=== PATIENT | male | born 1990 | race Caucasian/White ===

== ENCOUNTER 2019-03-23 01:51 | Emergency (ER) | payer MEDICAID, SELFPAY ==
[2019-02-05 16:43] VITALS: BMI 20.9
[2019-03-23 01:52] VITALS: BP 119/73; PULSE 77; RESP 18; TEMP 36.4; O2SAT 99; BMI 19.3
--- NOTE | 2019-03-23 02:00 | ED.VIS.GEN ---
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 He noticed some numbness and tingling in his left second and third distal tips of his fingers. He feels normal when he touches them. There is no pain. He has no hand pain or wrist pain. Is never had carpal tunnel syndrome. Denies any other symptoms except for he feels like his stomach in knots which he thinks is secondary to feeling anxious about this tingling. Current severity is mild. Worsened by nothing. Relieved by nothing. Past Medical History - Allergies and Home Meds Allergies/Adverse Reactions: Allergies bee venom protein (honey bee) Allergy (Verified 03/23/19 01:54) Anaphylaxis Primary Care Physician: Care Physician,No Primary [Primary Care Provider] - Prior records reviewed: Yes Past Medical History: None Surgical History: noncontributory Smoking Status: Current every day smoker Alcohol: None Drugs: None Review of Systems General: Denies: Chills, Fever, Sweats Eyes: Denies: Visual changes - bilaterally, Diplopia ENT: Denies: Rhinorrhea, Sore throat Cardiovascular: Denies: Chest pain, Palpitations Respiratory: Denies: Dyspnea, Cough, Dyspnea on exertion Gastrointestinal: Denies: Abdominal pain, Nausea, Vomiting, Diarrhea, Melena, Hematochezia Genitourinary: Denies: Dysuria, Hematuria, Frequency Musculoskeletal: Denies: Back pain, Extremity Pain Skin: Denies: Rash, Wounds Neurological: Reports: Numbness. Denies: Headache, Weakness, Parasthesia Physical Exam Vital Signs/Narrative: Vital Signs Temp Pulse Resp BP Pulse Ox 03/23/19 01:52 97.5 F L 77 18 119/73 99 General: Well nourished, Well developed, No Acute Distress Head: Normocephalic, Atraumatic Eyes: Perrl, EOMI ENT: Moist mucous membranes, No rhinorrhea Neck: Supple, Nontender Cardiovascular: Regular rate, Regular rhythm, No murmurs Respiratory: No distress, CTA bilaterally, Chest nontender Abdomen: Soft, Nontender, Nondistended, Normal bowel sounds Back: Nontender, Normal Inspection Extremities: Nontender, No edema Skin: Normal color, No rash Neurological: Alert, Oriented x3, Cranial nerves II-XII grossly intact, Normal Strength, Normal Sensation Psychological: Normal affect, Normal Mood Diagnostic/Tx/Re-eval - Medical Decision Making The patient likely has numbness and tingling from the median nerve neuropathy perhaps early carpal tunnel. Given a cock-up wrist splint and ibuprofen. Given a prescription for meloxicam. I do not think there is a central cause. I do not feel any lab work or imaging. He will follow-up as an outpatient ED Disposition - Plan for ED Patient: Disposition: Psychiatric Hospital or Unit Diagnosis: Paresthesia of finger Instructions: Carpal Tunnel Prescriptions: Meloxicam 15 mg PO DAILY #14 tab Prescription Printed Referrals: Gene Church MD [STAFF PHYSICIAN] -
[2019-03-23] MEDS: Ibuprofen 600 MG Tablet PO (02:13)
== END 2019-03-23 02:19 | disposition home or self-care (01) ==
LOC: ED 02:14
PROVIDERS: Emergency Provider Emergency Medicine
DX: R20.2 Paresthesia of skin (principal); R20.0 Anesthesia of skin; F17.200 Nicotine dependence, unspecified, uncomplicated
CPT/HCPCS: 99283

== ENCOUNTER 2019-03-25 21:27 | Emergency (ER) | payer MEDICAID, SELFPAY ==
[2019-03-25 21:28] VITALS: BP 126/72; PULSE 92; RESP 15; TEMP 36.9; O2SAT 97; BMI 21.7
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
[2019-03-25 22:09] VITALS: RESP 16
== END 2019-03-25 22:10 | disposition home or self-care (01) ==
LOC: ED 21:59
PROVIDERS: Emergency Provider Emergency Medicine
DX: M54.2 Cervicalgia (principal); H92.02 Otalgia, left ear; R51 Headache; Y04.0XXA Assault by unarmed brawl or fight, initial encounter
CPT/HCPCS: 99283

== ENCOUNTER 2019-03-30 04:23 | Emergency (ER) | payer MEDICAID, SELFPAY ==
[2019-03-27 11:29] VITALS: BMI 21.7
[2019-03-30 04:25] VITALS: BP 131/81; PULSE 85; RESP 18; TEMP 36.6; O2SAT 100; BMI 19.8
--- NOTE | 2019-03-30 04:35 | EKG12_ITS ---
Test Reason : PALPITATIONS Blood Pressure : / mmHG Vent. Rate : 058 BPM Atrial Rate : 058 BPM P-R Int : 142 ms QRS Dur : 096 ms QT Int : 402 ms P-R-T Axes : 067 066 072 degrees QTc Int : 394 ms Sinus bradycardia with marked sinus arrhythmia Otherwise normal ECG Confirmed by NIKO DOTSON ([id number]), editor house organ AARON HUDSON ([id number]) on 04/02/2019 1:14:44 PM Referred By: ROOPA Confirmed By:NIKO DOTSON
--- NOTE | 2019-03-30 04:36 | ED.VIS.GEN ---
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 He does not do any drugs. He occasionally drinks caffeine, but about half a cup of coffee before work, denies taking anything else this morning. He denies any near syncopal symptoms or chest pains. No dyspnea. He does not feel like anything is skipping, he feels like his heart rate is elevated. Past Medical History - Allergies and Home Meds Allergies/Adverse Reactions: Allergies bee venom protein (honey bee) Allergy (Verified 03/30/19 04:24) Anaphylaxis Primary Care Physician: Care Physician,No Primary [Primary Care Provider] - Past Medical History: None Surgical History: noncontributory Smoking Status: Current every day smoker Drugs: None Review of Systems General: Reports: Malaise. Denies: Chills, Fever, Sweats Eyes: Denies: Visual changes - bilaterally, Diplopia ENT: Denies: Rhinorrhea, Sore throat Cardiovascular: Reports: Palpitations, Heart racing. Denies: Chest pain Respiratory: Denies: Dyspnea, Cough, Dyspnea on exertion Gastrointestinal: Reports: Nausea. Denies: Abdominal pain, Vomiting, Diarrhea, Melena, Hematochezia Genitourinary: Denies: Dysuria, Hematuria, Frequency Musculoskeletal: Denies: Back pain, Extremity Pain Skin: Denies: Rash, Wounds Neurological: Denies: Headache, Weakness, Numbness Physical Exam Vital Signs/Narrative: Vital Signs Temp Pulse Resp BP Pulse Ox 03/30/19 04:25 97.9 F 85 18 131/81 H 100 Inital Vital Signs reviewed: Yes General: Well nourished, Well developed, No Acute Distress Head: Normocephalic, Atraumatic Eyes: Perrl, EOMI ENT: Moist mucous membranes, No rhinorrhea Neck: Supple, Nontender Cardiovascular: Regular rate, Regular rhythm - with occasional irregularity, No murmurs, Normal S1, Normal S2 Respiratory: No distress, CTA bilaterally, Chest nontender Extremities: Nontender, No edema Skin: Normal color, No rash, No Trauma Neurological: Alert, Oriented x3, Cranial nerves II-XII grossly intact, Normal Strength, Normal Sensation, Normal Gait, - - fine tremor Psychological: Normal affect, Normal Mood Diagnostic/Tx/Re-eval - Rhythm Strip Rhythm Strip: Sinus Rhythm Rate: 90 Ectopy: PAC(s) - possibly - EKG Initial EKG Interpretation: No Acute Injury Pattern, Sinus Arrythmia Prior: No Prior - Medical Decision Making I looked up the ingredients of the pill that the patient took, contains caffeine to 50 mg, and some herbal supplements. He likely is having side effects from the caffeine. He is not having a dysrhythmia. He will be given an oral dose of Ativan to help with his symptoms and discharged home to rest. ED Disposition - Plan for ED Patient: Disposition: Home or Assisted Living Diagnosis: Caffeine adverse reaction Instructions: Caffeine Oral tablet Referrals: Regina Desouza [NON-STAFF] - As Needed
[2019-03-30 05:06] VITALS: BP 123/84; PULSE 63; RESP 16; O2SAT 98
[2019-03-30] MEDS: LORazepam 1 MG Tablet PO (05:06)
== END 2019-03-30 05:09 | disposition home or self-care (01) ==
LOC: ED 04:57
PROVIDERS: Emergency Provider Emergency Medicine
DX: R00.0 Tachycardia, unspecified (principal); R11.0 Nausea; T43.615A Adverse effect of caffeine, initial encounter; Y92.9 Unspecified place or not applicable; F17.200 Nicotine dependence, unspecified, uncomplicated
CPT/HCPCS: 93005; 99284

== ENCOUNTER → 2019-09-12 14:34 | Outpatient (CLI) | payer MEDICAID, SELFPAY ==
[2019-04-12 11:35] VITALS: BMI 19.8
[2019-09-12 15:31] LABS: Hematocrit 43.5 % (40-54); Mean Corp Hgb Conc 34.5 g/dL (32-36); Mean Corpuscular Hgb 31.3 pg (27.0-32.0); Mean Corpuscular Volume 90.6 fL (80-94); Mean Platelet Vol. 10.1 fl (6.2-12.0); Platelet Count 161 K/mm3 (150-450); RBC Distribution Width CV 12.2 % (11.6-14.6); RBC Distribution Width SD 40.4 fl (35.1-43.9); White Blood Count 7.2 K/mm3 (4.4-11.0)
[2019-09-12 16:01] LABS: Anion Gap 5 (5-15); BUN 17 mg/dL (7-18); BUN/Creat Ratio 17.6 RATIO (10-20); Calcium,Total 9.1 mg/dL (8.5-10.1); Chloride 107 mmol/L (98-107); Creatinine, Serum 0.97 mg/dL (0.70-1.30); EST Glomerular Filtration Rate 99 mL/min (>60); Est Glom Filt Rate - Afr Amer 120 mL/min (>60); Glucose 116 mg/dL (74-106); Potassium 3.8 mmol/L (3.5-5.1); Sodium Level 139 mmol/L (136-145)
== END ==
PROVIDERS: PCP Family Medicine; Referring Provider Family Medicine
DX: N48.1 Balanitis (principal)
CPT/HCPCS: 36415; 80048; 85027

== ENCOUNTER 2019-09-18 17:21 | Emergency (ER) | payer MEDICAID, SELFPAY ==
[2019-04-12 11:35] VITALS: BMI 19.8
[2019-09-18 17:22] VITALS: BP 114/76; PULSE 98; RESP 16; TEMP 37.7; O2SAT 99; BMI 18.8
[2019-09-18] MEDS: Ondansetron ODT 4 MG Tablet PO (18:24)
[2019-09-18] MEDS: Ibuprofen 200 MG Tablet 400 MG PO (18:24)
[2019-09-18] MEDS: Acetaminophen 500 MG Tablet 1000 MG PO (18:24)
--- NOTE | 2019-09-18 18:28 | RAD_ITS ---
STUDY: X-RAY CHEST REASON FOR EXAM: Male, 29 years old. Cough with fever. TECHNIQUE: Frontal and lateral views of the chest. COMPARISON: None. FINDINGS: Hyperexpansion. Healed granulomatous calcification. There is no demonstrated pleural abnormality. Normal size heart. Normal mediastinum and yane. Normal visualized pulmonary arteries. Normal visualized aortic arch and descending thoracic aorta. Normal visualized thoracic spine. Normal visualized ribs, clavicles, and shoulders. There is no demonstrated abnormality of the visualized soft tissue structures of the upper abdomen. RAD/Chest PA and Lateral IMPRESSION: Hyperexpansion with no acute finding. Electronically Signed: Darrell Juárez MD at 18:45 EST , Service support ,
[2019-09-18 18:38] VITALS: BP 114/76; PULSE 98; RESP 16; TEMP 37.7; O2SAT 98
--- NOTE | 2019-09-18 19:02 | ED.VISSUMM ---
- ER Visit Summary Date of Service: 09/18/19 Chief Complaint: Cough History of Present Illness: The patient is a [address] Baldwin. Patient reports he has a cough that began 3 days ago. Its been productive of green sputum without blood. He had a fever to 102 degrees. He has a sore throat at 6 out of 10 in severity. Complains of diffuse myalgias. Complains of a headache is 4-10 in severity. He did not get a flu shot this year. Physical Examination: Vitals: Stable. Afebrile. General: Well-nourished and well-developed. Head: Normocephalic atraumatic. HEENT: Pharyngeal erythema with tonsillar enlargement bilaterally. No exudate. No evidence of peritonsillar abscess. Neck: Supple, no lymphadenopathy. No JVD. Nontender. Cardiovascular: Regular rate and rhythm. No murmurs. Respiratory: No respiratory distress. Clear to auscultation bilaterally. Abdominal: Soft, nontender, nondistended, normal bowel sounds. No guarding, rebound, or peritoneal signs. Back: Nontender. Extremities: Nontender, no edema. Skin: Normal color, no rash. Neurologic: Alert and oriented ?3. Cranial nerves II through XII are intact. Normal strength and sensation. Psych: Normal affect. Test Results: Chest x-ray is normal. Rapid strep is negative. Emergency Department Course and Treatment: Clinically the patient has influenza. I did not test him. He was given Tylenol, ibuprofen, and Zofran. He is resting more comfortably. Treatment Plan: Patient was instructed on symptomatic care. He will be discharged with Zofran. Instructed to follow-up Dr. Baldwin in 1 week if not improving. Return to the emergency department for any worsening symptoms. Disposition: To home in improved and stable condition. Impression: 1 1. URI. This note was generated with [employer] dictation software. It may contain incorrect words, spelling, and punctuation that were not noted in review of the chart prior to signing ED Disposition - Plan for ED Patient: Disposition: Home or Assisted Living Instructions: INFLUENZA (Adult) Prescriptions: Ondansetron [Zofran Odt] 4 mg PO Q8H PRN PRN #10 tab PRN Reason: Nausea Prescription Printed Referrals: Jolliff,Swetha S, MD [Primary Care Provider] - 1 Week if not improving
[2019-09-18 19:25] VITALS: PULSE 91; RESP 18; O2SAT 98
--- NOTE | 2019-09-18 19:26 | ED.RN ---
THIS NURSE REVIEWED D/C INSTRUCTIONS WITH PT. PT VERBALIZED UNDERSTANDING OF INSTRUCTIONS. PT DENIES FURTHER NEEDS OR QUESTIONS AT THIS TIME. PT AMBULATES FROM ROOM ON OWN WITHOUT ASSISTANCE FROM STAFF
== END 2019-09-18 19:26 | disposition home or self-care (01) ==
LOC: ED 18:24
PROVIDERS: Emergency Provider Emergency Medicine; PCP Family Medicine
DX: J06.9 Acute upper respiratory infection, unspecified (principal); Z72.0 Tobacco use
CPT/HCPCS: 71046; 87880; 99283

== ENCOUNTER 2019-09-19 06:34 | Emergency (ER) | payer MEDICAID, SELFPAY ==
[2019-09-18 17:22] VITALS: BMI 18.8
[2019-09-19 06:35] VITALS: BP 117/79; PULSE 84; RESP 18; TEMP 37.7; O2SAT 96; BMI 20.5
--- NOTE | 2019-09-19 06:42 | ED.VIS.GEN ---
History of Present Illness Chief Complaint: Fever Informant: Patient Onset: Days Narrative: Patient was seen in the emergency room last night for several day history of fever, cough, congestion, body aches. Rapid strep was negative. It was determined patient most likely had influenza but was outside the treatment window. He was given a prescription for Zofran at home. Patient states he felt pretty good when he left here last night. He went straight home and went to bed. He woke up at 615 this morning with a temperature of 102.6. He did not take anything for his fever. He has not yet filled his prescription from last night. He came back to the emergency room because he had spiked another fever. He denies any new symptoms. - Past Medical History (1) Influenza Status: Acute Past Medical History - Allergies and Home Meds Allergies/Adverse Reactions: Allergies bee venom protein (honey bee) Allergy (Verified 09/18/19 17:22) Anaphylaxis Primary Care Physician: Swetha Baldwin MD [Primary Care Provider] - Surgical History: noncontributory Smoking Status: Current every day smoker Review of Systems General: Reports: Fever Eyes: Denies: Visual changes - bilaterally ENT: Reports: Sore throat Cardiovascular: Denies: Chest pain Respiratory: Reports: Cough Gastrointestinal: Reports: Nausea. Denies: Vomiting Musculoskeletal: Reports: Myalgias. Denies: Swelling, Extremity Pain Skin: Denies: Rash Neurological: Denies: Weakness, Parasthesia Allergy: Denies: Uticaria Physical Exam Vital Signs/Narrative: Vital Signs Temp Pulse Resp BP Pulse Ox 09/19/19 06:35 99.9 F H 84 18 117/79 96 Inital Vital Signs reviewed: Yes General: Well nourished, Well developed Head: Normocephalic ENT: Moist mucous membranes, - - Posterior pharyngeal drainage. Uvula midline. Neck: Supple Cardiovascular: Regular rate, Regular rhythm Respiratory: No distress, CTA bilaterally Abdomen: Soft, Nontender, Hypoactive bowel sounds Back: Nontender Extremities: Nontender Skin: Normal color, No rash Neurological: Alert, Oriented x3 Psychological: Normal affect Diagnostic/Tx/Re-eval - Medical Decision Making Patient just had an extensive work-up for this illness last evening. He is given Tylenol, ibuprofen, and Zofran. He is encouraged to grape picker a bottle of Tylenol when he goes to the pharmacy to fill his Zofran prescription that was given last night. ED Disposition - Plan for ED Patient: Disposition: Home or Assisted Living Diagnosis: Influenza Instructions: INFLUENZA (Adult) Referrals: Swetha Baldwin MD [Primary Care Provider] -
[2019-09-19] MEDS: Ondansetron ODT 4 MG Tablet PO (06:48)
[2019-09-19] MEDS: Ibuprofen 200 MG Tablet 400 MG PO (06:48)
[2019-09-19] MEDS: Acetaminophen 500 MG Tablet 1000 MG PO (06:48)
== END 2019-09-19 06:56 | disposition home or self-care (01) ==
LOC: ED 06:52
PROVIDERS: Emergency Provider Emergency Medicine; PCP Family Medicine
DX: J11.1 Influenza due to unidentified influenza virus with other respiratory manifestations (principal)
CPT/HCPCS: 99283

== ENCOUNTER 2019-10-14 21:06 | Emergency (ER) | payer MEDICAID, SELFPAY ==
[2019-10-14 21:07] VITALS: BP 106/75; PULSE 81; RESP 16; TEMP 36.9; O2SAT 98; BMI 20.8
--- NOTE | 2019-10-14 22:20 | ED.VIS.GEN ---
History of Present Illness Chief Complaint: Wound Detail of Chief Complaint: Torn foreskin Informant: Patient Onset: Today Current Severity: Mild Maximum Severity: Mild Narrative: Patient presents with tear to his foreskin that occurred during intercourse shortly before arrival. Patient has not tried to urinate. Past Medical History - Allergies and Home Meds Allergies/Adverse Reactions: Allergies bee venom protein (honey bee) Allergy (Verified 10/14/19 21:10) Anaphylaxis Primary Care Physician: Swetha Baldwin MD [Primary Care Provider] - Yobani Collier MD [STAFF PHYSICIAN] - Past Medical History: None Surgical History: noncontributory Lives: With Family Smoking Status: Current every day smoker Review of Systems General: Denies: Chills, Fever Cardiovascular: Denies: Chest pain Respiratory: Denies: Dyspnea Gastrointestinal: Denies: Abdominal pain Genitourinary: Denies: Dysuria Musculoskeletal: Denies: Extremity Pain Skin: Reports: Wounds Neurological: Denies: Headache Physical Exam Vital Signs/Narrative: Vital Signs Temp Pulse Resp BP Pulse Ox 10/14/19 21:07 98.4 F 81 16 106/75 98 Inital Vital Signs reviewed: Yes General: Well nourished, Well developed Head: Normocephalic ENT: Moist mucous membranes Neck: Supple Cardiovascular: Regular rate, Regular rhythm Respiratory: No distress, CTA bilaterally Abdomen: Soft, Nontender : - - Patient is a superficial tear along the frenulum of the foreskin. No lesions are noted. Minimal bleeding. Neurological: Alert, Oriented x3 Psychological: Normal affect Diagnostic/Tx/Re-eval - Medical Decision Making Wound is cleansed. A small piece of Surgifoam and gauze are tucked next to the wound in the patient's underwear. I advised the patient that should heal spontaneously. He can use antibiotic ointment to the area to prevent infection. He was given return instructions if any sign of infection. Patient was advised to follow-up with Dr. Collier for any difficulties. I was advised by nursing staff prior to the patient leaving that he was actually planning on having a circumcision and is following with a urologist in [place]. He can follow-up with them as needed. ED Disposition - Plan for ED Patient: Disposition: Home or Assisted Living Diagnosis: Soft tissue injury Instructions: Wound Care Referrals: Swetha Baldwin MD [Primary Care Provider] - Yobani Collier MD [STAFF PHYSICIAN] - Additional Instructions: You can follow-up with Dr Collier or your urologist in [place]
[2019-10-14 22:35] VITALS: RESP 16
== END 2019-10-14 22:36 | disposition home or self-care (01) ==
PROVIDERS: Emergency Provider Emergency Medicine; PCP Family Medicine
DX: S30.93XA Unspecified superficial injury of penis, initial encounter (principal); X58.XXXA Exposure to other specified factors, initial encounter; Y93.9 Activity, unspecified; Y92.9 Unspecified place or not applicable; Y99.9 Unspecified external cause status; F17.200 Nicotine dependence, unspecified, uncomplicated
CPT/HCPCS: 99282

== ENCOUNTER 2020-02-03 10:56 | Emergency (ER) | payer MEDICAID, SELFPAY ==
[2020-02-03 10:57] VITALS: BP 132/81; PULSE 101; RESP 16; TEMP 36.1; BMI 21.9
[2020-02-03] MEDS: Tetracaine 0.5% Ophthalmic Bottle 1 DRP LEFT EYE (11:24)
[2020-02-03] MEDS: Fluorescein 1 MG STRIP 1 STRIP LEFT EYE (11:24)
--- NOTE | 2020-02-03 11:29 | ED.VIS.GEN ---
History of Present Illness Chief Complaint: Eye Problem Informant: Patient Onset: Yesterday Current Severity: Mild Maximum Severity: Mild Narrative: Patient complains of having rust in his eye as he was grinding he was wearing protective eyeglasses but felt as if some rocks got in his eye yesterday it persisted and he came in for evaluation. He has normal visual acuity no symptoms in the right eye only left, no other complaints no coronavirus exposures he has had this happen before and he has been seen at [facility] Past Medical History - Allergies and Home Meds Allergies/Adverse Reactions: Allergies bee venom protein (honey bee) Allergy (Verified 02/03/20 10:58) Anaphylaxis Primary Care Physician: Swetha Baldwin MD [Primary Care Provider] - Past Medical History: None Surgical History: noncontributory Smoking Status: Current every day smoker Review of Systems General: Denies: Chills, Fever, Sweats Eyes: Reports: Diplopia, -. Denies: Visual changes - bilaterally ENT: Denies: Rhinorrhea, Sore throat Cardiovascular: Denies: Chest pain, Palpitations Respiratory: Denies: Dyspnea, Cough, Dyspnea on exertion Gastrointestinal: Denies: Abdominal pain, Nausea, Vomiting, Diarrhea, Melena, Hematochezia Genitourinary: Denies: Dysuria, Hematuria, Frequency Musculoskeletal: Denies: Back pain, Extremity Pain Skin: Denies: Rash, Wounds Neurological: Denies: Headache, Weakness, Numbness Physical Exam Vital Signs/Narrative: Vital Signs Temp Pulse Resp BP 02/03/20 10:57 97.0 F L 101 H 16 132/81 H General: Well nourished, Well developed, No Acute Distress Head: Normocephalic, Atraumatic Eyes: Perrl, EOMI, - - The eyes are generally unremarkable visual acuity is intact to the left eye he is able to read the small print on the 4 x 4 card, left pupil reacts well anterior chamber intact conjunctivae appears normal, fluorescein tetracaine slit-lamp I see no obvious uptake and no obvious foreign body he has no symptoms in the right eye ENT: Moist mucous membranes, No rhinorrhea Neck: Supple, Nontender Cardiovascular: Regular rate, Regular rhythm, No murmurs Respiratory: No distress, CTA bilaterally, Chest nontender Abdomen: Soft, Nontender, Nondistended, Normal bowel sounds Back: Nontender, Normal Inspection Extremities: Nontender, No edema Skin: Normal color, No rash Neurological: Alert, Oriented x3, Cranial nerves II-XII grossly intact, Normal Strength, Normal Sensation Psychological: Normal affect, Normal Mood Diagnostic/Tx/Re-eval - Medical Decision Making He is feeling better after the tetracaine was applied to symptoms are resolved I explained to him this are in the possibility of an occult injury or foreign body that is not apparent today, he understands, he will wear sunglasses erythromycin stomach ointment he will follow-up with [facility] tomorrow and return for change in symptoms, again he was grinding he had glasses on and there was no high velocity injury Home stable Final impression left eye foreign body sensation after grinding rust ED Disposition - Plan for ED Patient: Diagnosis: Left eye corneal abrasion Instructions: ED Corneal Abrasion Prescriptions: Erythromycin Ophthalmic 1 applic LEFT EYE 4X/DAY #1 opth.tube Prescription Printed Referrals: Swetha Baldwin MD [Primary Care Provider] - Darrell Ames MD [STAFF PHYSICIAN] -
== END 2020-02-03 12:00 | disposition home or self-care (01) ==
LOC: ED 11:41
PROVIDERS: Emergency Provider Emergency Medicine; PCP Family Medicine
DX: S05.02XA Injury of conjunctiva and corneal abrasion without foreign body, left eye, initial encounter (principal); X58.XXXA Exposure to other specified factors, initial encounter; Y93.9 Activity, unspecified; Y92.9 Unspecified place or not applicable; Y99.9 Unspecified external cause status; F17.200 Nicotine dependence, unspecified, uncomplicated
CPT/HCPCS: 99283

== ENCOUNTER 2023-05-13 09:38 | Emergency (ER) | payer MEDICAID, SELFPAY ==
[2023-05-13 09:38] VITALS: BP 132/86; PULSE 93; RESP 14; TEMP 36.4; O2SAT 97; BMI 19.1
[2023-05-13] MEDS: Famotidine 20 MG Tablet PO (09:55)
[2023-05-13] MEDS: DiphenhydrAMINE 25 MG Capsule PO (09:55)
--- NOTE | 2023-05-13 10:07 | EX.ED.DYSGE1 ---
HPI History of Present Illness Chief Complaint: Allergic Reaction Informant: patient Narrative Narrative: 32-year-old male presenting to the emergency room with an insect sting. The patient states that he was at work when he felt something sting his right forearm. He looked down and saw some redness. He notes that he has had tingling in his feet and a discomfort in his neck. He has had prior urticaria and tightness in his throat with [facility] Medical History (Updated 05/13/23 @ 10:[address] Rehan Andrade DO) Back pain Chest pain Fatigue Hypertension Loss of consciousness Neck pain Shortness of breath Shoulder pain Home Medications erythromycin 5 mg/gram (0.5 %) eye ointment 1 applic LEFT EYE 4X/DAY ##1 02/03/20 [Rx Last Taken Unknown] Allergy/AdvReac Type Severity Reaction Status Date / Time bee venom protein (honey bee) Allergy Anaphylaxis Verified 05/13/23 09:40 Family History Other Diabetes Hypertension Myocardial infarction Social History Smoking Status: Current every day smoker tobacco type: cigarettes alcohol intake: current ROS ROS ED Constitutional Constitutional ED: Denies chills or weight loss Eyes Eyes: Denies change in vision or diplopia ENT ENT ED: Reports other Details: See history of present illness ; Denies ear pain, rhinorrhea or sore throat Cardiovascular Cardiovascular: Denies chest pain, orthopnea, palpitations or racing heartbeat Respiratory/Chest Respiratory/Chest: Denies cough, dyspnea or orthopnea Gastrointestinal Gastrointestinal: Denies abdominal pain, diarrhea, nausea or vomiting Genitourinary Genitourinary ED: Denies dysuria, hematuria or urinary frequency Musculoskeletal Musculoskeletal: Denies arthralgias or myalgias Integumentary Reports rash; Denies abscess Neurologic Neurologic: Denies headache(s) or weakness Psychiatric Psychiatric: Denies anxiety, depression, suicidal ideation or suicidal thoughts Endocrine Endocrinology: Denies polydipsia, polyphagia or polyuria Allergic/Immunologic Allergic/Immunologic ED: Denies mouth swelling, tongue swelling or urticaria EXAM Physical Exam Const Vital Signs: 05/13/23 09:38 Temperature 97.5 F L Temperature Source Temporal Pulse Rate 93 Respiratory Rate 14 Blood Pressure 132/86 H Blood Pressure Mean 101 Pulse Ox 97 Oxygen Delivery Method Room Air Positive well nourished and well developed General Appearance ED: well developed HEENT Reports normocephalic, head/scalp atraumatic and moist mucous membranes HEENT Narrative: There is no uvular swelling. There is no no stridor. Handling secretions normally Eyes PERRL and EOMs intact bilaterally Neck no lymphadenopathy, supple and no JVD Resp normal respiratory effort and clear to auscultation bilaterally Cardio regular rate, regular rhythm and no murmurs GI normal to inspection, nondistended, normoactive bowel sounds and non-tender Palpation: soft Back/Spine no CVA tenderness and normal ROM Extremity Extremity Narrative: There is a half dollar area of erythema on the dorsum of the right wrist. I do not see a stinger. There is no lymphangitic streaking. General Extremety ED: Negative for edema General Extremity: Negative for edema Neuro oriented x3 and CN's II-XII intact bilaterally Sensorium / Orientation: alert Motor Exam: strength 5/5 throughout Psych mental status grossly normal Mood & Affect: Negative for depressed or tearful Skin no rashes or lesions noted Skin Narrative: There are no hives MDM MDM MDM Narrative Medical decision making narrative: The patient received Benadryl and Pepcid. He was also given ice for the envenomation site. He has had no progression. Patient requested a discharge. He is otherwise been doing well. Would recommend continued supportive care at home with Benadryl and Pepcid as needed. Discharge Plan Triage Chief Complaint: Allergic Reaction ED Provider: Rehan Andrade Dx/Rx/DC Orders Clinical Impression: Insect bite of forearm with local reaction Instructions: ED Insect Sting, Local Reaction Prescriptions: No Action erythromycin 1 APPLIC ointment 1 applic LEFT EYE 4X/DAY Qty: 1 0RF Primary Care Provider: Swetha Baldwin Referrals: Swetha Baldwin MD [Primary Care Provider] - As Needed Disposition Disposition: Home, Self Care
== END 2023-05-13 11:21 | disposition home or self-care (01) ==
LOC: ED 10:33
PROVIDERS: Emergency Provider Emergency Medicine; PCP Family Medicine; Visit Provider Emergency Medicine
DX: S50.861A Insect bite (nonvenomous) of right forearm, initial encounter (principal); W57.XXXA Bitten or stung by nonvenomous insect and other nonvenomous arthropods, initial encounter; I10 Essential (primary) hypertension; F17.210 Nicotine dependence, cigarettes, uncomplicated
CPT/HCPCS: 99283

== ENCOUNTER 2024-03-21 15:41 | Emergency (ER) | payer OTHER, MEDICAID, SELFPAY ==
[2024-03-21 15:42] VITALS: BP 113/75; PULSE 90; RESP 17; TEMP 36.3; O2SAT 94
[2024-03-21 15:45] VITALS: BP 113/75; PULSE 82; RESP 19; O2SAT 95
--- NOTE | 2024-03-21 15:46 | EDS_ITS ---
HPI History of Present Illness Chief Complaint: Allergic Reaction Informant: patient Onset/Context/Timing Onset: Today Context: Sudden Onset Timing: Continuous Quality: Stinging Location: Upper back Narrative Narrative: Patient presents with a bee sting that occurred today. Patient states this occurred just prior to arrival. Patient denies any difficulty breathing or difficulty swallowing. Patient states he has pain where he got stung. Patient denies any other hives or swelling. Patient states he got stung on his upper back. Patient did not see the insect that stung him. Patient denies any nausea or vomiting. Patient denies any chest pain. [facility] Medical History (Updated 03/21/24 @ 17:[address] Shubham Moeller DO) Back pain Neck pain Chest pain Fatigue Shoulder pain Shortness of breath Loss of consciousness Hypertension Home Medications ?Medication ?Instructions ?Recorded ?Last Taken ?Type erythromycin 5 mg/gram (0.5 %) eye 1 applic LEFT EYE 4X/DAY ##1 02/03/20 Unknown Rx ointment Allergy/AdvReac Type Severity Reaction Status Date / Time bee venom protein (honey bee) Allergy Anaphylaxis Verified 05/13/23 09:40 Family History Other Diabetes Hypertension Myocardial infarction Surgical History (Updated 03/21/24 @ 15:[address] Shubham Moeller DO) History of testicular surgery Hx of cataract surgery Social History Smoking Status: Current every day smoker tobacco type: cigarettes alcohol intake: current ROS ROS ED Constitutional Constitutional ED: Denies chills or fever(s) Eyes Eyes: Denies blurry vision or change in vision ENT ENT ED: Denies rhinorrhea or sore throat Cardiovascular Cardiovascular: Denies chest pain or palpitations Respiratory/Chest Respiratory/Chest: Denies cough or dyspnea Gastrointestinal Gastrointestinal: Denies nausea or vomiting Genitourinary Genitourinary ED: Denies dysuria or hematuria Musculoskeletal Musculoskeletal: Denies back pain or neck pain Integumentary Reports rash; Denies abscess Neurologic Neurologic: Denies headache(s) or weakness Allergic/Immunologic Allergic/Immunologic ED: Denies mouth swelling or urticaria EXAM Physical Exam Const Vital Signs: 03/21/24 15:42 03/21/24 15:45 07/31/24 16:41 Temperature 97.3 F L Temperature Source Temporal Pulse Rate 90 82 56 L Respiratory Rate 17 19 H 18 Blood Pressure 113/75 113/75 101/77 Blood Pressure Mean 87 87 85 Pulse Ox 94 95 99 Oxygen Delivery Method Room Air Room Air Room Air Positive well nourished and well developed General Appearance ED: well developed and NAD HEENT Reports moist mucous membranes HEENT Narrative: Oropharynx is clear. Airway is patent. There is no pharyngeal edema noted. Neck supple and no JVD Resp normal respiratory effort and clear to auscultation bilaterally Cardio regular rate and regular rhythm GI non-tender and non-distended Palpation: soft Neuro oriented x3, CN's II-XII intact bilaterally and no sensory deficits noted Sensorium / Orientation: alert Motor Exam: strength 5/5 throughout Psych mental status grossly normal Skin Skin Narrative: There is an area of erythema and mild warmth over the upper thoracic area. There is no stinger noted at the site. There is no discharge or drainage. There are no petechia noted. There are no other urticaria noted. MDM MDM MDM Narrative Medical decision making narrative: Smoking cessation was discussed. At this point, it does not appear to be a systemic anaphylactic reaction to the sting. However, patient was given Benadryl, Solu-Medrol, and Pepcid. Patient does not require epinephrine at this time. Patient will be monitored. Patient was instructed to bring his call [facility] if he developed any shortness of breath or difficulty swallowing or noticed any worsening hives. EKG Initial EKG: Attestation: I personally reviewed and interpreted this EKG as follows: Interpretation: Sinus Rhythm (66) and No Acute Injury Pattern Comments: EKG was obtained. On my independent interpretation, it showed a normal sinus rhythm with a sinus arrhythmia with a rate of 66. HI interval, QRS interval, and QTc intervals were all normal. [place] was normal. There are no acute ST or T wave changes. Prior EKG tracings: available for review Prior: Unchanged (03/30/2019) Treatment and Re-Evaluation :: Patient was feeling better on reevaluation. Patient had no further hives. P atient had no shortness of breath or difficulty swallowing. Patient had no sensation of throat closing. Patient was advised that this is most likely a local reaction to the insect that stung him. Patient was advised that different insects have different venoms and that he may be allergic to 1 and not allergic to others. Patient understood and was agreeable with the plan. Patient was instructed to use Benadryl as needed for any itching. Patient was instructed to follow-up with his primary care physician in 5 to 7 days. Discharge Plan Triage Chief Complaint: Allergic Reaction ED Provider: Shubham Moeller Dx/Rx/DC Orders Clinical Impression: Local reaction to hymenoptera sting, Sinus arrhythmia seen on electrocardiogram Instructions: ED Insect Sting, Local Reaction Prescriptions: No Action erythromycin 1 APPLIC ointment 1 applic LEFT EYE 4X/DAY Qty: 1 0RF Primary Care Provider: Swetha Baldwin Referrals: Swetha Baldwin MD [Primary Care Provider] - 5-7 Days Print Language: Italian Disposition Disposition: Home, Self Care
[2024-03-21] MEDS: DiphenhydrAMINE 50 MG/ML Syringe IV (15:57)
[2024-03-21] MEDS: MethylPREDNISolone 125 MG/2 ML Vial 60 MG IV (15:57)
[2024-03-21] MEDS: Famotidine 200 MG/20 ML MDV 20 MG in 0.9% Normal Saline (Pres. free 8 ML 300 MG IV (16:02)
--- NOTE | 2024-03-21 16:15 | EKG12_ITS ---
Test Reason : ALLERGIC REACTION Blood Pressure : / mmHG Vent. Rate : 066 BPM Atrial Rate : 066 BPM P-R Int : 140 ms QRS Dur : 094 ms QT Int : 392 ms P-R-T Axes : 066 054 069 degrees QTc Int : 410 ms Sinus rhythm with marked sinus arrhythmia Otherwise normal ECG Confirmed by DEYANIRA ROBERTS, LISBET ([id number]), continuity editor KARISHMA PRYOR ([id number]) on 03/23/2024 10:24:56 AM Referred By: NAYA Confirmed By:MANOHAR MCMILLAN MD
[2024-03-21 16:41] VITALS: BP 101/77; PULSE 56; RESP 18; O2SAT 99
[2024-03-21 18:00] VITALS: BP 103/64; PULSE 78; RESP 15; TEMP 36.8; O2SAT 96
== END 2024-03-21 18:04 | disposition home or self-care (01) ==
PROVIDERS: Emergency Provider Emergency Medicine; PCP Family Medicine; Visit Provider Emergency Medicine
DX: T63.441A Toxic effect of venom of bees, accidental (unintentional), initial encounter (principal); I49.8 Other specified cardiac arrhythmias; F17.200 Nicotine dependence, unspecified, uncomplicated; I10 Essential (primary) hypertension
CPT/HCPCS: 93005; 96374; 96375; 99283; A4216; J3490

== ENCOUNTER 2024-04-29 23:47 | Emergency (ER) | payer MEDICAID, SELFPAY ==
[2024-04-29 23:48] VITALS: BP 108/74; PULSE 56; RESP 18; TEMP 36.5; O2SAT 100; BMI 19.7
--- NOTE | 2024-04-30 00:15 | ED.VIS.DENTA ---
HPI History of Present Illness Chief Complaint: Dental Narrative Narrative: 33-year-old male past medical history of previous dental pain in the same area presents with toothache that began this evening after he ate chocolate. He is a smoker. He denies any fevers or chills, no exacerbating or alleviating factors. He presents because of the dental pain that he experienced this evening. With the same pain that he has had before. He was told that he would need dental extraction previously. There is a gap between his first and second molar in his left lower jaw where the pain is. PFSH PFS Medical History Back pain Neck pain Chest pain Fatigue Shoulder pain Shortness of breath Loss of consciousness Hypertension Home Medications ?Medication ?Instructions ?Recorded ?Last Taken ?Type naproxen 500 mg tablet (Naprosyn) 500 mg PO BID PRN pain #20 tabs 04/30/24 Unknown Rx penicillin V potassium 500 mg 500 mg PO TID 7 days #21 tabs 04/30/24 Unknown Rx tablet Allergy/AdvReac Type Severity Reaction Status Date / Time bee venom protein (honey bee) Allergy Anaphylaxis Verified 05/13/23 09:40 Family History Other Diabetes Hypertension Myocardial infarction Surgical History History of testicular surgery Hx of cataract surgery Social History Smoking Status: Current every day smoker tobacco type: cigarettes alcohol intake: current ROS ROS ED ROS Narrative Review of systems positive for left lower jaw pain and dental pain. No exacerbating or alleviating factors. No fevers or chills, no jaw swelling. EXAM Physical Exam Narrative Exam Narrative: Afebrile. Vital signs noted. Nontoxic-appearing. Focused examination of the mouth does reveal fillings in the first and second molar of the left lower jaw, no gingival swelling, no drooling, no trismus, airway patent. The first molar is carious on the backside. No purulent drainage. Const Vital Signs: 04/29/24 23:48 Temperature 97.7 F L Temperature Source Oral Pulse Rate 56 L Respiratory Rate 18 Blood Pressure 108/74 Blood Pressure Mean 85 Pulse Ox 100 Oxygen Delivery Method Room Air MDM MDM MDM Narrative Medical decision making narrative: Smoking cessation was discussed. Patient drove himself here so he was given naproxen and his first dose of penicillin. I wrote him prescriptions for penicillin and naproxen and advised him to follow-up with his dentist/maxillofacial surgeon as soon as possible. I feel he can be discharged safely home with follow-up. Return instructions were reviewed. Disposition is discharged home in stable condition. History & Record Review Additional record(s) reviewed:: Prior ED visit Discharge Plan Triage Chief Complaint: Dental ED Provider: Adrian Greene Dx/Rx/DC Orders Clinical Impression: Pain due to dental caries, Toothache Instructions: ED Dental Pain, ED Dental Cavity Prescriptions: New penicillin V potassium 500 mg tablet 500 mg PO TID 7 Days Qty: 21 0RF naproxen [Naprosyn] 500 mg tablet 500 mg PO BID PRN (Reason: pain) Qty: 20 0RF Activity Restrictions/Additional Instructions: Stop smoking. Follow-up with dentist/maxillofacial surgeon as soon as possible. Print Language: Cook Islander Disposition Disposition: Home, Self Care
[2024-04-30] MEDS: Penicillin Vk 250 MG Tablet 500 MG PO (00:23)
[2024-04-30] MEDS: Naproxen 500 MG Tablet PO (00:23)
[2024-04-30 00:25] VITALS: BP 108/74; PULSE 60; RESP 18; TEMP 36.5; O2SAT 100
== END 2024-04-30 00:26 | disposition home or self-care (01) ==
LOC: ED 04-30 00:17
PROVIDERS: Emergency Provider Emergency Medicine; Visit Provider Emergency Medicine
DX: K02.9 Dental caries, unspecified (principal); I10 Essential (primary) hypertension; F17.210 Nicotine dependence, cigarettes, uncomplicated
CPT/HCPCS: 99283

== ENCOUNTER 2024-06-29 14:39 | Emergency (ER) | payer OTHER, MEDICAID, SELFPAY ==
[2024-06-29 14:39] VITALS: BP 122/82; PULSE 90; RESP 16; TEMP 36.7; O2SAT 98; BMI 21.1
== END 2024-06-29 15:20 | disposition home or self-care (01) ==
PROVIDERS: Emergency Provider Emergency Medicine; Visit Provider Emergency Medicine
DX: Z48.02 Encounter for removal of sutures (principal); I10 Essential (primary) hypertension; F17.210 Nicotine dependence, cigarettes, uncomplicated
CPT/HCPCS: 99283

== ENCOUNTER 2025-05-30 20:54 | Emergency (ER) | payer MEDICAID, SELFPAY ==
[2025-05-30 20:54] VITALS: BP 127/91; PULSE 83; RESP 18; TEMP 36.6; O2SAT 99
[2025-05-30 21:54] VITALS: BP 106/75; PULSE 69; RESP 14; O2SAT 97
[2025-05-30 21:59] VITALS: BP 106/75; PULSE 78; RESP 16; O2SAT 98
--- NOTE | 2025-05-30 22:22 | RAD_ITS ---
PROCEDURE: CHEST PA AND LATERAL 05/30/2025 REASON FOR EXAM: CHEST PAIN TECHNIQUE: Procedure Code: RADCXR Modality: DX Procedure: CHEST PA AND LATERAL COMPARISON: None. FINDINGS: Lungs/Pleura: Clear. Heart/Mediastinum: Normal in size. Bones/Soft tissues: Unremarkable. RAD/Chest PA and Lateral IMPRESSION: No acute cardiopulmonary disease. Reading Location: [id number]
[2025-05-30 22:45] LABS: Hematocrit 43.5 % (40-54); Hemoglobin 15.5 g/dL (13.0-16.5); Immature Granulocytes Count 0.040 X10^3/uL (0.0-0.0); Mean Corp Hgb Conc 35.6 g/dL (32-36); Mean Corpuscular Volume 89.1 fL (80-94); Mean Platelet Vol. 10.2 fl (6.2-12.0); NRBC Flagged by Analyzer 0 % (0-5); Platelet Count 171 K/mm3 (150-450); RBC Distribution Width CV 12.4 % (11.6-14.6); RBC Distribution Width SD 40.7 fl (35.1-43.9); Red Blood Count 4.88 M/mm3 (4.6-6.2); White Blood Count 11.7 K/mm3 (4.4-11.0)
[2025-05-30] MEDS: DiphenhydrAMINE 50 MG/ML Syringe 25 MG IV (22:47)
[2025-05-30] MEDS: Famotidine 200 MG/20 ML MDV 20 MG in 0.9% Normal Saline (Pres. free 8 ML 300 MG IV ×2 (22:48→22:50)
[2025-05-30 23:00] VITALS: BP 106/78; PULSE 52; O2SAT 99
[2025-05-30 23:14] LABS: Anion Gap 12 (5-15); BUN 18 mg/dL (4-19); BUN/Creat Ratio 21.6 RATIO (10-20); Calcium,Total 9.1 mg/dL (7.6-11.0); Carbon Dioxide 21.8 mmol/L (21.0-32.0); Chloride 104 mmol/L (98-108); Estimated Creatinine Clearance 102.46 ml/min (50-250); Glucose 89 mg/dL (70-99); Potassium 3.5 mmol/L (3.3-5.1); Troponin T High Sensitivity < 6 ng/L (<=22)
[2025-05-30 23:39] VITALS: BP 103/69; PULSE 74; RESP 16; TEMP 36.6; O2SAT 99
--- NOTE | 2025-05-30 23:45 | EDS_ITS ---
HPI History of Present Illness Chief Complaint: Chest Pain Informant: patient Narrative Narrative: Patient is a 34-year-old male who states that he has a family history of cardiac disease and he reports he has had chest pain for years. He states that he has been worked up with no obvious reason for the symptoms. He states that today he was stung 3 times and afterwards noticed some increased chest discomfort. Secondary to the return of symptoms after insect sting/exposure he presents for evaluation The patient denies any recent travel surgery or history of DVT/PE. He denies any excessive stimulant use or illicit drug use. [facility] Medical History Back pain Neck pain Chest pain Fatigue Shoulder pain Shortness of breath Loss of consciousness Hypertension Home Medications ?Medication ?Instructions ?Recorded ?Last Taken ?Type prednisone 20 mg tablet 40 mg (2 x 20 mg) PO DAILY 5 days 05/30/25 Unknown Rx #10 tabs Allergy/AdvReac Type Severity Reaction Status Date / Time bee venom protein (honey bee) Allergy Anaphylaxis Verified 05/30/25 21:10 Family History Other Diabetes Hypertension Myocardial infarction Surgical History History of testicular surgery Hx of cataract surgery Social History Smoking Status: Current every day smoker tobacco type: cigarettes alcohol intake: current ROS ROS ED Constitutional Constitutional ED: Denies chills or fever(s) Eyes Eyes: Denies blurry vision or change in vision ENT ENT ED: Denies sore throat Cardiovascular Cardiovascular: Reports chest pain; Denies palpitations or racing heartbeat Respiratory/Chest Respiratory/Chest: Denies cough or dyspnea Gastrointestinal Gastrointestinal: Denies abdominal pain, diarrhea, nausea or vomiting Musculoskeletal Musculoskeletal: Denies back pain Integumentary Reports other Details: Positive insect sting/bite Neurologic Neurologic: Denies headache(s) Hematologic/Lymphatic Hematologic/Lymphatic: Denies easy bleeding or easy bruising Allergic/Immunologic Allergic/Immunologic ED: Denies mouth swelling, tongue swelling or urticaria EXAM Physical Exam Const Vital Signs: 05/30/25 20:54 05/30/25 21:50 05/30/25 21:54 Temperature 98 F Temperature Source Oral Pulse Rate 83 69 Respiratory Rate 18 14 Respiratory Effort Non-Labored Blood Pressure 127/91 H 106/75 Blood Pressure Mean 103 85 Pulse Ox 99 97 Oxygen Delivery Method Room Air Room Air 05/30/25 21:59 05/30/25 23:00 05/30/25 23:39 Temperature 98 F Temperature Source Pulse Rate 78 52 L 74 Respiratory Rate 16 16 Respiratory Effort Blood Pressure 106/75 106/78 103/69 Blood Pressure Mean 85 87 80 Pulse Ox 98 99 99 Oxygen Delivery Method Room Air Room Air Positive well nourished and well developed General Appearance ED: well developed HEENT HEENT Narrative: Normocephalic atraumatic No tongue or lip swelling no oral lesions no airway edema or compromise No angioedema or anaphylaxis changes noted Eyes PERRL and EOMs intact bilaterally General Eye ED: Negative for scleral icterus Neck supple and no JVD Chest Wall Chest Narrative: No bony deformity or subcutaneous emphysema present Patient does have 2 erythematous urticarial lesions along the left lower anterior chest wall consistent with insect sting. No secondary findings to suggest cellulitis or abscess. Resp normal respiratory effort and clear to auscultation bilaterally Resp Narrative: No nasal flaring retractions tachypnea or accessory muscle use Cardio regular rate and regular rhythm Rate: other Other Details: Heart is regular rate and rhythm without murmurs rubs or gallops Radial and carotid pulses are equal and symmetric GI normal to inspection, nondistended, normoactive bowel sounds, non-tender, non- distended and no masses Auscultation: normoactive bowel sounds Palpation: soft Back/Spine no CVA tenderness Extremity Extremity Narrative: No asymmetric edema no pitting edema negative Homans' sign bilaterally Patient has a single erythematous urticarial lesion along the left anterior middle thigh consistent with insect bite/sting On murmurs resolving or possible going against compartment syndrome Neuro oriented x3, CN's II-XII intact bilaterally and no sensory deficits noted Sensorium / Orientation: alert Motor Exam: strength 5/5 throughout Psych Psych Narrative: Patient has a flat affect Skin Skin Narrative: Urticarial lesions to the chest and thigh consistent with insect bite/sting as documented above MDM MDM MDM Narrative Medical decision making narrative: Patient arrived to the ER with stable vitals. He reported a longstanding history of chest discomfort with negative workups in the past. He states that his symptoms of chest discomfort only came on after being bit/stung earlier today. He does not have findings to suggest angioedema or anaphylaxis and therefore there is no need for airway stabilization. In order to assess for potential acute coronary syndrome versus lung pathology such as pneumonia or pneumothorax and elected perform basic laboratory study. As his risk factors do not suggest potential DVT or PE I felt no need for a D-dimer. Also the patient reports his chest discomfort have been present for multiple hours and was constant during this time so therefore I felt any need for 1 troponin as if the value was normal would indicate no ACS as it has had multiple hours to elevate. Blood work revealed no clinically significant findings and chest x-ray revealed no acute lung pathology. After receiving IV Solu-Medrol Benadryl and Pepcid patient reported improvement of symptoms and remained without findings of respiratory distress. Therefore he is low risk for acute coronary syndrome and workup does not suggest ACS or cardiac dysrhythmia and he has no findings of angioedema or anaphylaxis and is otherwise safe for discharge History & Record Review Discussion w/independent historian: Patient Lab Data Attestation: I reviewed the patient's lab results. Labs: Laboratory Results - last 24 hr 05/30/25 22:03 WBC 11.7 H RBC 4.88 Hgb 15.5 Hct 43.5 MCV 89.1 MCH 31.8 MCHC 35.6 RDW Std Deviation 40.7 RDW Coeff of [place] 12.4 Plt Count 171 MPV 10.2 Immature Gran % (Auto) 0.300 Neut % (Auto) 69.9 Lymph % (Auto) 20.8 [place] % (Auto) 6.2 Eos % (Auto) 2.2 Baso % (Auto) 0.6 Absolute Neuts (auto) 8.2 H Absolute Lymphs (auto) 2.43 Nucleated RBC % 0 Sodium 138 Potassium 3.5 Chloride 104 Carbon Dioxide 21.8 Anion Gap 12 BUN 18 Creatinine 0.85 Estim Creat Clear Calc 102.46 Est GFR (MDRD) Non-Af 118 BUN/Creatinine Ratio 21.6 H Glucose 89 Calcium 9.1 Troponin T High Sens < 6 Radiography Diagnostic Testing: Clinical Impression(s) from Imaging Studies Chest X-Ray 05/30/25 22:22 IMPRESSION: No acute cardiopulmonary disease. Reading Location: [facility] Chest x-ray as interpreted by the emergency medicine physician reveals no acute infiltrate pneumothorax or pleural effusion Discharge Plan Triage Chief Complaint: Chest Pain Other Complaint: Allergic Reaction ED Provider: Phi Gu Dx/Rx/DC Orders Clinical Impression: Nonspecific chest pain, Insect sting Instructions: ED BEE STING General Allergic Rxn, ED Chest Pain, Uncertain Cause Prescriptions: New prednisone 20 mg tablet 40 mg PO DAILY 5 Days Qty: 10 0RF Primary Care Provider: Care Physician,No Primary Referrals: Gene Church MD [Med Staff - Active Staff, Family Practice] Care Physician,No Primary [Primary Care Provider, Medical] Activity Restrictions/Additional Instructions: Your workup today revealed no sign of cardiac damage or lung pathology. Please take the prednisone as directed secondary to the allergic reaction from the insect stings and return to the ER should you have any further concerns Print Language: Croatian Disposition Disposition: Home, Self Care Discharge Date/Time: 05/30/25 23:54
== END 2025-05-30 23:54 | disposition home or self-care (01) ==
PROVIDERS: Emergency Provider Emergency Medicine; Visit Provider Emergency Medicine
DX: R07.89 Other chest pain (principal); S70.362A Insect bite (nonvenomous), left thigh, initial encounter; S20.362A Insect bite (nonvenomous) of left front wall of thorax, initial encounter; W57.XXXA Bitten or stung by nonvenomous insect and other nonvenomous arthropods, initial encounter; I10 Essential (primary) hypertension; F17.210 Nicotine dependence, cigarettes, uncomplicated; Z82.49 Family history of ischemic heart disease and other diseases of the circulatory system
CPT/HCPCS: 71046; 80048; 84484; 85025; 93005; 96365; 96375; 99284; A4216